=== PATIENT | male | born 1980 | race Caucasian/White ===

== ENCOUNTER 2019-01-23 16:40 | Emergency (ER) | payer OTHER, BC ==
[~2019-01-23] VITALS: Ht 190.5 cm; Wt 104.3 kg
== END 2019-01-23 18:26 | disposition home or self-care (01) ==
LOC: ED 16:40
DX: S93.402A Sprain of unspecified ligament of left ankle, initial encounter (principal); X50.1XXA Overexertion from prolonged static or awkward postures, initial encounter; Y93.89 Activity, other specified; Y92.89 Other specified places as the place of occurrence of the external cause; Y99.8 Other external cause status